=== PATIENT | female | born 1950 | race Caucasian/White ===

== ENCOUNTER 2021-08-14 07:19 | Emergency (ER) | payer MEDICARE, SELFPAY ==
[2021-08-14 07:20] VITALS: BP 126/85; PULSE 85; RESP 18; TEMP 36.6; O2SAT 96; BMI 30.4
[2021-08-14 07:23] VITALS: BP 126/85; PULSE 85; RESP 18; TEMP 36.6; O2SAT 96
--- NOTE | 2021-08-14 07:23 | NURSING ---
NO OLD EKGS
--- NOTE | 2021-08-14 07:32 | RAD_ITS ---
STUDY: X-RAY CHEST REASON FOR EXAM: Female, 71 years old. Cough TECHNIQUE: Single AP portable view of the chest. COMPARISON: None. FINDINGS: EKG electrodes are seen. Mild increased markings are seen in the right upper lobe as well as in both lower lobes. Follow-up is recommended. There is blunting of the left costophrenic angle. Normal size heart. Normal mediastinum and phylicia. Normal visualized pulmonary arteries. There is atherosclerotic calcification of the aortic arch with tortuosity. There are diffuse degenerative changes of the visualized thoracic spine. Normal visualized ribs, clavicles, and shoulders. There is no demonstrated abnormality of the visualized soft tissue structures of the upper abdomen. RAD/Chest 1 View (Portable) IMPRESSION: Mild increased markings are seen in the right upper lobe as well as in both lower lobes. Follow-up is recommended. Electronically Signed: Sean Penaloza MD at 8:23 EST , Service support ,
--- NOTE | 2021-08-14 07:32 | EKG12_ITS ---
Test Reason : CP Blood Pressure : / mmHG Vent. Rate : 078 BPM Atrial Rate : 078 BPM P-R Int : 188 ms QRS Dur : 102 ms QT Int : 418 ms P-R-T Axes : 062 -40 065 degrees QTc Int : 476 ms Sinus rhythm with Premature supraventricular complexes Left axis deviation Abnormal ECG Confirmed by LENNY SIMPSON, ESPERANZA ([id number]), state editor FARNAZ RUTH ([id number]) on 08/15/2021 11:39:15 AM Referred By: ISABEL Confirmed By:ESPERANZA GALVEZ MD
--- NOTE | 2021-08-14 07:40 | EX.ED.DYSGE1 ---
HPI History of Present Illness Chief Complaint: Chest Pain Narrative Narrative: Patient has a history of pulmonary fibrosis. She has had a cough over the past week, today she has developed some sharp stabbing chest pain in the anterior mid chest region. It is worse when she pushes on that area. She has no pleuritic component. She has no back pain or tearing sensation. No lower extremity edema or calf pain. No recent fever or chills, she tells me that the cough that she has had over the past week has had some production and it has been yellow. No current shortness of breath or any worsening of her breathing. No orthopnea. [facility] Medical History GERD (gastroesophageal reflux disease) Hiatal hernia Hypertension Hypothyroid Pulmonary fibrosis Home Medications cefdinir 300 mg PO BID #14 cap 08/14/21 [Rx Last Taken Unknown] doxycycline monohydrate 100 mg PO BID #14 cap 08/14/21 [Rx Last Taken Unknown] hydrocodone-acetaminophen 1 tab PO QHS PRN 3 Days #10 tab 08/14/21 [Rx Last Taken Unknown] Allergy/AdvReac Type Severity Reaction Status Date / Time codeine Allergy Anaphylaxis Verified 08/14/21 08:27 Iodinated Contrast Media [CT] Allergy Hives Verified 08/14/21 08:27 iodine Allergy Rash Verified 08/14/21 08:27 Penicillins Allergy Hives Verified 08/14/21 08:27 Surgical History Knee joint replacement status Social History Smoking Status: Never smoker ROS ROS ED ROS Narrative Past medical history: Reviewed as above Medications: Reviewed Social history: Noncontributory, lives with Review of systems: All systems negative except as indicated General: No fever Eyes: No visual changes ENT: Some recent upper airway congestion, this is actually improving Neck: No neck pain Cardiovascular: Chest pain as in HPI Respiratory: No shortness of breath. Productive cough as in HPI Gastrointestinal: No abdominal pain, nausea vomiting or diarrhea Genitourinary: No dysuria Musculoskeletal: Denies myalgias no difficulty with ambulation Skin: No rash Neurological: No memory loss, confusion or any focal weakness Psych: No recent behavioral changes Hematologic: No easy bleeding or easy bruising EXAM Physical Exam Narrative Exam Narrative: Physical exam General: Well nourished, Well developed, No Acute Distress. She appears relatively comfortable. Head: Normocephalic, Atraumatic Eyes: Conjunctiva not pale ENT: Moist mucous membranes Neck: Supple, Nontender, No lymphadenopathy Cardiovascular: Regular rate, Regular rhythm. No murmur Chest wall: Patient has very reproducible anterior chest wall pain over the midsternal region. No obvious rash in that region. Respiratory: Coarse bilateral breath sounds with scant wheezing. She is not tachypneic she is speaking in full sentences without any difficulty breathing. Abdomen: Soft, Nontender, Nondistended Back: Nontender, Normal Inspection. Negative for: CVA tenderness Extremities: Nontender, No edema. No calf pain. Skin: Normal color, No rash Neurological: Alert, Normal Strength, Normal Sensation Psychological: Normal affect Const Vital Signs: 08/14/21 07:20 08/14/21 07:23 Temperature 97.9 F 97.9 F Temperature Source Temporal Temporal Pulse Rate 85 85 Respiratory Rate 18 18 Blood Pressure 126/85 H 126/85 H Blood Pressure Mean 98 98 Pulse Ox 96 96 Oxygen Delivery Method Room Air Room Air MDM MDM MDM Narrative Medical decision making narrative: Patient overall has an unremarkable work-up, she does have infiltrate on the x-ray which may be her source, I will treat her with antibiotics. COVID is negative. She is not hypoxic she ambulated around the ED without desaturating. If any changes she is to return to the ED. At this time her signs and symptoms are not consistent with thromboembolic events, thus a work-up for PE was not done. She was ruled out by cardiac criteria according to our hospital guidelines. Lab Data Labs: Laboratory Results - last 24 hr 08/14/21 08/14/21 08/14/21 07:30 07:30 07:30 WBC 10.5 RBC 4.55 Hgb 13.3 Hct 41.7 MCV 91.6 MCH 29.2 MCHC 31.9 L RDW Std Deviation 45.1 H RDW Coeff of Bakari 13.3 Plt Count 228 MPV 11.0 Immature Gran % (Auto) 0.200 Neut % (Auto) 67.6 Lymph % (Auto) 19.5 Sunflower % (Auto) 10.9 H Eos % (Auto) 1.5 Baso % (Auto) 0.3 Absolute Neuts (auto) 7.1 Absolute Lymphs (auto) 2.04 Nucleated RBC % 0 Sodium 138 Potassium 3.1 L Chloride 99 Carbon Dioxide 30.0 Anion Gap 9 BUN 20 H Creatinine 1.15 H Estim Creat Clear Calc 37.62 Est GFR (MDRD) Af Amer 59 L Est GFR (MDRD) Non-Af 49 L BUN/Creatinine Ratio 17.4 Glucose 142 H Calcium 9.0 Total Bilirubin 1.00 AST 27 ALT 39 Alkaline Phosphatase 69 Troponin I High Sens 11 B-Natriuretic Peptide 26.2 Total Protein 7.5 Albumin 3.3 Globulin 4.2 Albumin/Globulin Ratio 0.8 L COVID-19 (FLO) 08/14/21 08/14/21 07:45 09:35 WBC RBC Hgb Hct MCV MCH MCHC RDW Std Deviation RDW Coeff of Bakari Plt Count MPV Immature Gran % (Auto) Neut % (Auto) Lymph % (Auto) Sunflower % (Auto) Eos % (Auto) Baso % (Auto) Absolute Neuts (auto) Absolute Lymphs (auto) Nucleated RBC % Sodium Potassium Chloride Carbon Dioxide Anion Gap BUN Creatinine Estim Creat Clear Calc Est GFR (MDRD) Af Amer Est GFR (MDRD) Non-Af BUN/Creatinine Ratio Glucose Calcium Total Bilirubin AST ALT Alkaline Phosphatase Troponin I High Sens 10 B-Natriuretic Peptide Total Protein Albumin Globulin Albumin/Globulin Ratio COVID-19 (FLO) Cancelled Radiography Diagnostic Testing: Clinical Impression(s) from Imaging Studies Chest X-Ray 08/14/21 07:32 IMPRESSION: Mild increased markings are seen in the right upper lobe as well as in both lower lobes. Follow-up is recommended. Electronically Signed: Sean Penaloza MD at 8:23 EST , Service support , EKG Initial EKG: Comments: Sinus rhythm with a rate of 78. Normal MO and QTc intervals. Some PACs are seen. Otherwise no ischemic changes. Discharge Plan Triage Chief Complaint: Chest Pain ED Provider: Andre Choudhary Dx/Rx/DC Orders Clinical Impression: Chest pain, Pneumonia Instructions: ED Pneumonia (Adult) Prescriptions: New hydrocodone-acetaminophen 5-325 mg tablet 1 tab PO QHS PRN (Reason: pain) 3 Days Qty: 10 RF: 0 cefdinir 300 mg capsule 300 mg PO BID Qty: 14 RF: 0 doxycycline monohydrate 100 mg capsule 100 mg PO BID Qty: 14 RF: 0 Primary Care Provider: Care Physician,No Primary Referrals: Care Physician,No Primary [Primary Care Provider] - Disposition Disposition: Home, Self Care
[2021-08-14 07:42] LABS: Absolute Lymphocyte Count 2.04 X10^3/uL (0.83-4.51); Absolute Neutrophil Count 7.1 X10^3/uL (2.0-7.7); Basophil# 0.03 X10^3/uL; Basophil% 0.3 % (0-1); Eosinophil# 0.16 X10^3/uL; Eosinophils% 1.5 % (0-5); Hematocrit 41.7 % (37-47); Hemoglobin 13.3 g/dL (12.0-15.0); Lymphocyte # 2.04 X10^3/ul (0.83-4.51); Lymphocyte % 19.5 % (19-41); Mean Corp Hgb Conc 31.9 g/dL (32-36); Mean Corpuscular Hgb 29.2 pg (27.0-32.0); Mean Corpuscular Volume 91.6 fL (81-99); Monocyte# 1.14 X10^3/uL; Monocyte% 10.9 % (0-10); NRBC Flagged by Analyzer 0 % (0-5); Neutrophil # 7.08 X10^3/uL (2.7-7.7); Neutrophil % 67.6 % (47-70); Platelet Count 228 K/mm3 (150-450); RBC Distribution Width CV 13.3 % (11.6-14.6); RBC Distribution Width SD 45.1 fl (35.1-43.9); Red Blood Count 4.55 M/mm3 (4.2-5.4); White Blood Count 10.5 K/mm3 (4.4-11.0)
[2021-08-14 08:01] LABS: ALB/GLOB Ratio 0.8 RATIO (0.9-2.4); AST(SGOT) 27 U/L (15-37); Alanine Aminotransfer ALT/SGPT 39 U/L (13-56); Albumin, Serum 3.3 g/dL (3.2-5.0); Alkaline Phosphatase 69 U/L (45-117); Anion Gap 9 (5-15); BUN 20 mg/dL (7-18); BUN/Creat Ratio 17.4 RATIO (10-20); Chloride 99 mmol/L (98-107); Creatinine, Serum 1.15 mg/dL (0.55-1.02); EST Glomerular Filtration Rate 49 mL/min (>60); Est Glom Filt Rate - Afr Amer 59 mL/min (>60); Estimated Creatinine Clearance 37.62 ml/min; Globulin 4.2 g/dL (2.2-4.2); Glucose 142 mg/dL (74-106); Potassium 3.1 mmol/L (3.5-5.1); Protein, Total 7.5 g/dL (6.4-8.2); Sodium Level 138 mmol/L (136-145); Troponin-I HS 11 pg/mL (3.0-54.0)
[2021-08-14 08:13] LABS: BNP,B-Type NATRIURETIC PEPTIDE 26.2 pg/mL (0-100)
[2021-08-14] MEDS: Ketorolac 15 MG/ML Vial IV (09:44)
[2021-08-14 10:12] LABS: Troponin-I HS 10 pg/mL (3.0-54.0)
[2021-08-14] MEDS: Ceftriaxone 1 GM/50 ML BAG IV (11:21)
--- NOTE | 2021-08-14 11:25 | CM.ED ---
SW Note Referral Source: Case Find Referral Reason: No PCP DOMINIQUE met with PCP. She reports she has a PCP at [facility] in [place] that she has been going to for 3 years. No other issues or needs voiced. SW remains available. Coretta ROYAL
[2021-08-14 14:25] VITALS: BP 132/76; PULSE 72; RESP 18; TEMP 36.6; O2SAT 97
== END 2021-08-14 14:39 | disposition home or self-care (01) ==
PROVIDERS: Emergency Provider Emergency Medicine; Visit Provider Emergency Medicine
DX: J18.9 Pneumonia, unspecified organism (principal)
CPT/HCPCS: 71045; 80053; 83880; 84484; 85025; 87426; 87635; 93005; 96365; 96366; 96367; 96375; 99284; A4216; U0003; U0005